=== PATIENT | female | born 1990 ===

== ENCOUNTER 2018-05-28 23:17 | Emergency (ER) | payer MEDICAID ==
[2018-05-29 00:02] VITALS: BMI 29.9
[2018-05-29 00:16] LABS: SQUAMOUS EPITHIAL 4 /hpf (0-5); URINE BILIRUBIN NEGATIVE (NEGATIVE); URINE BLOOD NEGATIVE (NEGATIVE); URINE CLARITY CLEAR (Clear); URINE COLOR STRAW (YELLOW); URINE GLUCOSE (UA) NEG (NEGATIVE); URINE LEUKOCYTE ESTERASE NEG Leu/uL (Negative); URINE PROTEIN NEGATIVE (NEGATIVE); URINE UROBILINOGEN 0.2-1.0 mg/dL (0.2-1.0)
--- NOTE | 2018-05-29 00:58 | OBHP ---
Datetime: 05/29/2018 00:10 IP Adm Impression: , intrauterine IP Admit Plan: Observation/Evaluation Admit Comment, IP Provider: 27 YO with IUP at EGA 19.1 weeks as per LMP , PAOLO , who presents today to [facility] with c/o intermittent lower abdominal cramping pain since 4 PM, is mod erate in intensity. Patient denies VB, LOF, JUNE, N/V, blurry vision, SOB, dysuria, chills, fever or ot her acute complaint at this time. Patient reports +FM. ROS: unremarkable, except as per HPI. OBGYN: , patient reports normal first with at term delivery via due to failure to descend. Denies problems in current . provider: Dr Gonzalez. PMH: Denies FMH: Denies SOCHx: Denies ETOH, tobacco or rec drug use. SURG: ALLERG: NKA MEDS: PNV PE GEN: NAD HEENT: NCAT RESP: CTA b/l CV: RRR, S1 S2 normal, no murmurs ABD: Gravid, soft to palpation EXT: No edema A/P 27 YO with IUP at EGA 19.1 weeks as per LMP , PAOLO 10/21/18, who presents with inte rmittent lower abdomen cramping pain -Maternal VS monitoring -FHR monitoring: FHR within normal range 140s to 150s -UA stat Case discussed with attending Dr Shaunna Escalante MD PGY1 Addendum by Dr. Maza: I have evaluated the patient independently and i agree with the above Comments, ACOG Physical Exam: Please see triage comment Vital Signs Provider: Reviewed; Within Normal Limits IP Chief Complaint: Maternal discomfort
--- NOTE | 2018-05-29 01:00 | OBDCSUM ---
Datetime: 05/29/2018 00:57 Discharged to, Provider: Home Follow up at, Provider: OB Disch Instr Activity: Normal activity Disch Instr Diet: Regular Discharge Instructions, Provider: Routine instructions given Discharge Time: 05/29/2018 00:57 Follow up in weeks, Provider: 4 wks Disch Referrals: None Contraception discussed, Prov: Yes Discharge Diagnosis Prov Other: Encounter for suspected UTI
[2018-05-29 07:11] VITALS: BP 109/73; PULSE 88
== END 2018-05-29 00:57 | disposition home or self-care (01) ==
LOC: H.EROB2 23:17
DX: O26.92 Pregnancy related conditions, unspecified, second trimester (principal); R10.2 Pelvic and perineal pain; Z87.59 Personal history of other complications of pregnancy, childbirth and the puerperium; Z3A.19 19 weeks gestation of pregnancy

== ENCOUNTER 2018-06-26 13:55 | Emergency (ER) | payer MEDICAID ==
--- NOTE | 2018-06-26 15:58 | OBHP ---
Datetime: 06/26/2018 15:45 IP Adm Impression: , intrauterine ; No Active Labor IP Chief Complaint Other: back pain IP Admit Plan: Discharge home Admit Comment, IP Provider: 27yo IUP 23w ([facility]) c/o lower back discomfort for a few days. Localized to midline non-radiating. faustina when she bends over. No F/U/D POBGYNH: C/S x 1 PMH: Dneies PSH: C/S NKA PSoH Denies smoing ETOH drugs A: IUP at 23w back pain - musculoskeletal pain PLAN: will idshcarge home -Acetamenophen 2tab po q 4h prn pain / warm compress Follow up in 1-2w [facility] labor instructions Abdomen - PN: Normal Back - PN: Normal Lungs - PN: Normal Thyroid - PN: Normal Neurologic - PN: Normal HEENT - PN: Normal General - PN: Normal FHR - Baseline A Provider: + Comments, ACOG Physical Exam: ROS: General: no fatigue; no weakness HEENT: No JUNE; No visual dist RESP: No SOB; No cough CV: No CP No palpitaions GI: No N/V/D : no F/U/D Musclo: No joint pain; localized back pain EGA AdmitDate IP: 23.2 IP Chief Complaint: Maternal discomfort
[2018-06-26 20:00] VITALS: BP 107/56; PULSE 81; TEMP 98.2; O2SAT 99
== END 2018-06-26 15:35 | disposition home or self-care (01) ==
LOC: H.EROB2 13:55
DX: O26.92 Pregnancy related conditions, unspecified, second trimester (principal); M54.5 Low back pain; M79.10 Myalgia, unspecified site; Z3A.23 23 weeks gestation of pregnancy